=== PATIENT | male | born 1930 | race Caucasian/White ===

== ENCOUNTER 2017-04-03 12:51 | Inpatient (IN) ==
--- NOTE | 2017-04-03 13:42 | Emergency Department Report ---
Medical Clearance HPI - General Chief complaint: Medical Clearance Stated complaint: evaluation Time Seen by Provider: 04/03/17 13:31 Source: patient, other Mode of arrival: ambulatory Limitations: no limitations - History of Present Illness HPI Narrative: Pt denies any complaints at this time. Pt here for clearance to [facility]. He does have a history of dementia with behaviotal changes, Alzheimers, A fib, and neuromuscular dysfunction of the bladder MD complaint: medical clearance requested Onset (ago): unknown Reason for Medical Clearance: other Alleged Intoxication: No Associated Symptoms: denies other symptoms Treatments Prior to Arrival: none Home medications: Home Medications Medication Instructions Recorded Confirmed Aspirin [Yair Chewable Aspirin] 81 mg PO HS 04/03/17 04/03/17 Donepezil [Aricept] 5 mg PO HS 04/03/17 04/03/17 Memantine HCl [Namenda Xr] 28 mg PO HS 04/03/17 04/03/17 Quetiapine [Seroquel] 25 mg PO HS 04/03/17 04/03/17 Allergies/Adverse reactions: Allergies Allergy/AdvReac Type Severity Reaction Status Date / Time Sulfa (Sulfonamide Allergy Verified 04/03/17 13:01 Antibiotics) Review of Systems All systems: reviewed and negative except as stated Genitourinary: Reports: other Neurological: Reports: other Physical Exam - Limitations Limitations: no limitations - General General appearance: alert, in no apparent distress - Normal Exams: Head:: Normocephalic without trauma Eyes:: Pupils are PERRLA w/ EOMI Neck:: Full range of motion Chest/Respirations:: Clear all aquino, with good airflow, and symmetry bilaterally Cardiovascular:: Regular rate and rhythm, without murmur or gallop, Pulses 2+ all extremities Abdomen:: Bowel sounds positive, soft, non-tender, non-distended Musculoskeletal:: No tenderness, or deformity noted, good range of motion, all extremities Integumentary:: No rashes Neurological:: Patient is alert Psychiatric:: Patient exhibits, appropriate attention, emotion and affect Course Vital Signs Temperature 97.7 F 04/03/17 12:55 Pulse Rate 59 L 04/03/17 12:55 Respiratory Rate 20 04/03/17 12:55 Blood Pressure 174/77 H 04/03/17 12:55 Pulse Oximetry 96 04/03/17 12:55 Temperature 97.7 F 04/03/17 12:55 Pulse Rate 59 L 04/03/17 12:55 Respiratory Rate 20 04/03/17 12:55 Blood Pressure 174/77 H 04/03/17 12:55 Pulse Oximetry 96 04/03/17 12:55 Medical Clearance - [facility] Narrative Medical decision making narrative: Labs reviewed, Urine conclusive for UTI. CXR pending Pt ok to transfer to [facility] - Differential Diagnosis Likely: urinary tract infection Differential Diagnosis Narrative: Depression, anxiety, Metabolic syndrome, Dehydration - Lab Data Attestation: I reviewed the patient's lab results. Result diagrams: 04/03/17 14:06 04/03/17 14:06 Lab Results 04/03/17 04/03/17 04/03/17 Range/Units 14:06 14:06 15:04 WBC 8.9 (4.5-11.0) T/MM3 RBC 5.37 (4.50-5.90) M/MM3 Hgb 16.3 (13.5-17.5) GM/DL Hct 50.8 (41-53) % MCV 94.6 (80-100) UM3 MCH 30.4 (26-34) UUG MCHC 32.1 (31-37) GM/DL RDW Std Deviation 46.7 (36.9-50.2) FL Plt Count 235 (130-400) T/MM3 MPV 10.5 (9.4-12.4) UM3 Immature Gran % (Auto) 0.3 (0.0-0.5) % Neut % (Auto) 63.3 (33-66) % Lymph % (Auto) 23.8 (23-45) % Day % (Auto) 8.7 (0-9.0) % Eos % (Auto) 3.3 (0-4) % Baso % (Auto) 0.6 (0-2) % Neut # 5.7 (1.8-7.7) T/MM3 Lymph # 2.1 (1-4.8) T/MM3 Day # 0.8 (0-0.8) T/MM3 Eos # 0.3 (0-0.5) T/MM3 Baso # 0.1 (0-0.2) T/MM3 Abs Immat Gran (auto) 0.03 (0.00-0.03) T/MM3 Turbidity < 20 (0-20) Sodium 146 H (134-144) MEQ/L Potassium 4.1 (3.6-5) MEQ/L Chloride 104 (98-107) MEQ/L Carbon Dioxide 30 (22-30) MEQ/L Anion Gap 12 (5-15) MEQ/L BUN 13.0 (9-20) MG/DL Creatinine 1.1 (0.8-1.5) MG/DL GFR Calculation 64 BUN/Creatinine Ratio 12 (6-26) RATIO Glucose 154 H (75-110) MG/DL Calculated Osmolality 284 H (261-280) MOSM/KG Calcium 9.5 (8.4-10.2) MG/DL Total Bilirubin 1.00 (0.20-1.30) MG/DL Icterus Index < 2 (0-7) AST 23 (17-59) U/L ALT 32 (21-72) U/L Alkaline Phosphatase 107 (38-126) U/L Total Protein 8.1 (6.3-8.2) G/DL Albumin 4.7 (3.5-5.0) G/DL Globulin 3.4 (2.4-3.6) G/DL Albumin/Globulin Ratio 1.4 (1.1-2.2) RATIO Specimen Hemolysis < 15 (0-25) Ur Collection Type Urine, clean catch Urine Color Yellow (YELLOW) Urine Clarity Sl cloudy Urine pH 6.0 (5.0-8.0) Ur Specific [place] 1.015 (1.015-1.025) Urine Protein Negative (NEGATIVE) Urine Glucose (UA) Negative (NEGATIVE) Urine Ketones Negative (NEGATIVE) Urine Occult Blood 1+ A (NEGATIVE) Urine Nitrate Positive A (NEGATIVE) Urine Bilirubin Negative (NEGATIVE) Urine Urobilinogen 0.2 (NORMAL) EU/DL Ur Leukocyte Esterase 3+ (NEGATIVE) Urine RBC 1-3 (0-3) /HPF Urine WBC Tntc (0-5) /HPF Urine Bacteria 2+ H (NEGATIVE) Ur Culture Indicated? Cult reflexed &setup - Radiology Data Attestation: I reviewed the patient's radiology results. per Dr Mendez - EKG Data EKG #1 EKG shows normal: sinus rhythm Rate: bradycardia [place]/QRS: normal Disposition Clinical Impression: UTI (urinary tract infection) Qualifiers: Urinary tract infection type: acute cystitis Hematuria presence: with hematuria Qualified Code(s): N30.01 - Acute cystitis with hematuria [place] 66 [place] [facility] [facility] [place] [facility] Condition: Stable Prescriptions: No Action Quetiapine [Seroquel] 25 mg PO HS Aspirin [Yair Chewable Aspirin] 81 mg PO HS Memantine HCl [Namenda Xr] 28 mg PO HS Donepezil [Aricept] 5 mg PO HS Time of Disposition: 15:43 - Seen By: [email or web address]
--- OUTSIDE RECORDS SUMMARY | 2017-04-03 14:16 | External Medical Summary ---
:1930 Author Organization [employer] Care Team Providers Name Role Phone Laboratory, Services Provider Role Unavailable Allergies No Known Allergies Problems Problem Type Condition ICD-9 Code Onset Dates Condition Status Assessment Obstructive uropathy 599.60 Active Medications No Known Medications Results No Known Results Summary Purpose [employer] Submission
--- NOTE | 2017-04-03 16:11 | XRay Report ---
INDICATION: clearance PROCEDURE: CHEST 2-VIEWS UPRIGHT (PA & LAT) Encounter: Initial COMPARISON: None FINDINGS: The lungs are clear without evidence of focal abnormal airspace opacity. There is no pleural effusion or pneumothorax. The heart size, mediastinal contours and pulmonary vascularity are within normal limits. Old rib and left clavicular deformities. IMPRESSION: No acute cardiopulmonary disease. .
[2017-04-03 17:28] VITALS: BMI 24.3
[2017-04-03] MEDS: ASPIRIN 81 MG CHEWABLE TABLET PO SCH ×2 (19:44→20:15)
[2017-04-03] MEDS: DONEPEZIL 5 MG TABLET PO SCH ×2 (19:44→20:15)
[2017-04-03] MEDS: MEMANTINE 10 MG TABLET PO SCH ×2 (19:44→20:15)
[2017-04-03] MEDS: QUETIAPINE 25 MG TABLET PO SCH ×2 (19:44→20:15)
--- NOTE | 2017-04-03 21:33 | 24 Hour Neuropsychiatic Eval ---
Date of Admission: 04/03/17 16:37 Chief complaint: Agitation per NM History of Present Illness: Patient is as 86-year-old , retired male admitted [place] [facility] [place] [facility] after striking his while she was attempting to help straight cath him as part of his morning routine. His son reports that he recently started taking a new med and has been more agitated since that time, at other times as well. Requires straight cath TID for bladder needs. Patient has a hx of Alzheimer's and has been taking Aricept 5mg daily, Namenda XR 28mg daily and then started Seroquel 25mg PO q HS on 03/30. Patient is calm and cooperative on interview but oriented to self only. He has no insight/memory of symptoms or why he is hospitalized. He cannot remember his 's name or how many children they have. He reports his mood is pretty good most of the time and he feels well physically. He denies SI, HI, or AVH. Dementia: Memory Impairment, Poor Executive Functioning, Other (Agitation, aggression) PFSH Patient Stated Medical History Alzheimer's Disease Yes Other Cardiology Yes: Afib Other Yes: Neuromuscular dysfunction-bladder Other Musculoskeletal Yes: Weakness Depression Yes Family History: Patient is not able to give family hx - Social History Smoking status: Never smoker Substance use type: unknown Housing: assisted living facility Household members: spouse Current occupational status: previously employed Current residence: Assisted Living Review of Systems ROS unobtainable: due to mental status - Psychiatric Psychiatric: Present: behavioral changes, mood swings. Absent: abnormal sleep pattern, auditory hallucinations, homicidal ideation, suicidal ideation, visual hallucinations Mental Status Exam Vitals: Last Vital Signs Temp 97.2 F 04/03/17 20:51 Pulse 52 L 04/03/17 20:51 Resp 16 04/03/17 20:51 BP 135/66 04/03/17 20:51 Pulse Ox 96 04/03/17 20:51 Height: 1.83 m Weight: 81.4 kg - Mental Status Exam Muscle Strength/Tone: Normal Dressing: Casual Grooming: Fair Attitude: Cooperative Motor Activity: Normal Eye Contact: Fair Speech: Other (Short responses) Volume: Normal Rhythm: Appropriate Rhythm Sensory: Alert Orientation: Disoriented to time, Disoriented to place, Disoriented to situation , Oriented to person Mood: Euthymic (Mood labile per family, [place]) Rate of Thoughts: Delayed Thought Organization: Confused Associations: Illogical Abstract Reasoning: Impaired, concrete Computation: Poor Computation Thought Content: Other (No abnormal thought content elicited outside of MNCD) Perception/Psychotic: Perception Normal Language: Naming Impaired Fund of Knowledge: Poor fund of knowledge Memory: Poor-immediate, Poor-recent, Poor-remote Suicidal Ideation: Denies Homicidal Ideation: Denies Insight: Poor Judgement: Poor Impulse Control: Poor - Laboratory Result Diagrams: 04/03/17 14:06 04/03/17 14:06 Assessment and Plan (1) Major neurocognitive disorder Problem details: Severe, with behavioral disturbance - history of Alzheimer's disease Current visit: Yes Status: Acute (2) UTI (urinary tract infection) Qualifiers: Urinary tract infection type: acute cystitis Hematuria presence: with hematuria Qualified Code(s): N30.01 - Acute cystitis with hematuria Current visit: Yes Status: Acute r/o Delirium secondary to UTI Admit to [facility] [place] [facility]. Maintain safety and elopement precautions. Obtain additional history from family. Consult hospitalist for optimization of comorbidities. Continue home medications for the time being. Will request CBC, CMP, TSH with reflex free T4, UA, Vitamin B12 and folate levels. Consider EKG and additional imaging. Monitor mood and behavior.
[2017-04-04] MEDS: MEMANTINE 10 MG TABLET PO SCH ×3 (10:58→20:06)
--- NOTE | 2017-04-04 14:09 | History & Physical Report ---
<Nadege Munoz - Last Filed: 04/04/17 15:51> History of Present Illness Date: 04/04/17 Chief complaint: increased agitation HPI: Patient is an 86-year-old male from [place], [place]. He was admitted to the [facility] due to increasing agitation. It is reported that he struck his while she was attempting to help straight catheter him as part of his morning routine at the residential. Patient is a poor historian. All information was gleaned from his chart and outside records. Apparently his son reports that he recently started taking a new medication and has been more agitated since that time. Patient has a history of Alzheimer's and has been recently started on Seroquel on 03/30/17. Patient was seen was sitting at the table in the dining room. He was calm and cooperative. He is oriented to self only. He feels he is doing well. He is unable to answer any questions related to his history. Patient's nurse reports that today she drained over 1500 cc from his bladder today with straight catheter. It is not clear how long it had been since the patient was catheterized prior, but usually he is catheterized 3 times a day. On admission, he was found to have a positive urine. It is unclear as to if the patient had any urinary symptoms. He has been started on Keflex and culture is pending at this time. Review of Systems ROS unobtainable: due to mental status [facility] Patient Stated Medical History Neurocognitive disorder Depression Family History: Unable to obtain - Social History Smoking status: Never smoker Housing: residential Current residence: Assisted Living Medications Home Medications Medication Instructions Recorded Confirmed Type Aspirin [Yair Chewable Aspirin] 81 mg PO HS 04/03/17 04/04/17 History Donepezil [Aricept] 5 mg PO HS 04/03/17 04/04/17 History Memantine HCl [Namenda Xr] 28 mg PO HS 04/03/17 04/04/17 History Quetiapine [Seroquel] 25 mg PO HS 04/03/17 04/04/17 History Allergies Allergy/AdvReac Type Severity Reaction Status Date / Time Sulfa (Sulfonamide Allergy Verified 04/04/17 00:46 Antibiotics) Exam Vital Signs: Temperature 97.6 F 04/04/17 09:20 Pulse Rate 51 L 04/04/17 09:20 Respiratory Rate 24 09/20/17 09:20 Blood Pressure 167/76 H 04/04/17 09:20 Pulse Oximetry 99 04/04/17 09:20 Height/Weight/BMI: Height 1.83 m Weight 81.4 kg Body Mass Index 24.3 - Constitutional Present: no acute distress, well nourished, well developed - Routine Neck Exam Present: supple - Routine Respiratory Exam Present: CTA bilaterally. Absent: wheezes - Routine Cardiovascular Exam Present: RRR, S1, S2. Absent: murmur - Routine Abdominal Exam Present: soft, non distended. Absent: tenderness - Routine Extremities Exam Present: edema, normal capillary refill - Routine Skin Exam Present: dry, warm - Routine Neurological Exam Present: alert. Absent: oriented X3 (oriented to self only) - Routine Psychiatric Exam Present: normal affect, cooperative Results - Labs CBC & Chem 7: 04/03/17 14:06 04/03/17 14:06 - ECG Data Tracing #1 Sinus bradycardia - Imaging and Cardiology Chest x-ray Additional comments: IMPRESSION: No acute cardiopulmonary disease. Assessment and Plan Assessment and Plan: Impression Neurocognitive deficits with behavioral changes Hypernatremia-POA Hypothyroidism-TSH on admission 5.85 UTI versus asymptomatic bacteriuria-given his change in mental status, antibiotic treatment has been initiated Plan Agree with admission to [facility] for psychiatric evaluation and treatment, and to provide safe environment for the patient. Encourage fluids given his hypernatremia. Recheck BMP in the a.m. Start low-dose Synthroid for his elevated TSH. Free T4 is still pending. He will need TSH in 4 weeks. Continue cephalexin for presumed UTI. Culture is pending. Thank you for the consult. We will continue to follow patient medically throughout his hospital stay. Sepsis Assessment - Evaluation Sepsis screening result: No Definite Risk Hospital Course Summary Disclaimer: The visit summary below is not to be considered part of the above Progress Note. Hospital Course: Impression Neurocognitive deficits with behavioral changes Hypernatremia-POA Hypothyroidism-TSH on admission 5.85. UTI versus asymptomatic bacteriuria-given his change in mental status, antibiotic treatment has been initiated 04/04/17-hospitalist consult Agree with admission to [facility] for psychiatric evaluation and treatment, and to provide safe environment for the patient. Encourage fluids given his hypernatremia. Recheck BMP in the a.m. Start low-dose Synthroid for his elevated TSH. Free T4 is still pending.Repeat TSH in 4 weeks. Continue cephalexin for presumed UTI. Culture is pending. Thank you for the consult. We will continue to follow patient medically throughout his hospital stay. <Silver Traore - Last Filed: 04/04/17 19:05> History of Present Illness Date: 04/04/17 [facility] Patient Stated Medical History Alzheimer's Disease Yes Other Cardiology Yes: Afib Other Yes: Neuromuscular dysfunction-bladder Other Musculoskeletal Yes: Weakness Depression Yes Exam Vital Signs: Temperature 97.2 F 04/04/17 16:32 Pulse Rate 54 L 04/04/17 16:32 Respiratory Rate 20 04/04/17 16:32 Blood Pressure 149/83 H 04/04/17 16:32 Pulse Oximetry 99 04/04/17 16:32 Height/Weight/BMI: Height 6 ft Weight 81.4 kg Body Mass Index 24.3 Results - Labs CBC & Chem 7: 04/03/17 14:06 04/03/17 14:06 Assessment and Plan Assessment and Plan: Above pt was seen and examined, agree with above plan of care and findings. On exam pt is very disoriented - but is not agitated. Labs show his TSH is high , he is on low dose T4 replacement, apparently his hypothyroidism is a new Dx. Other labs reviewed. Diagnosis and plan 1) Hypernatremia - mild 2) Hypothyroidism - TSH elevated, would check an AM cortisol and go slow with his replacement to avoid heart problems. 3) UTI - Await cultures. Continue Keflex. - Time spent with patient 25 - 35 minutes Hospital Course Summary Disclaimer: The visit summary below is not to be considered part of the above Progress Note.
[2017-04-04] MEDS ORDERED: HALOPERIDOL 5 MG/ML INJECTION IM PRN (15:48)
[2017-04-04] MEDS ORDERED: HALOPERIDOL 0.5 MG TABLET PO PRN (15:48)
[2017-04-04] MEDS: QUETIAPINE 25 MG TABLET PO SCH ×2 (19:49→20:06)
[2017-04-04] MEDS: ASPIRIN 81 MG CHEWABLE TABLET PO SCH ×2 (19:49→20:04)
[2017-04-04] MEDS: DONEPEZIL 5 MG TABLET PO SCH ×2 (19:49→20:03)
--- NOTE | 2017-04-04 21:25 | Neuropsych Progress Note ---
[facility] Subjective Date: 04/04/17 - Sujective/Severity of Illness Medications: Aspirin (Asa) 81 mg PO [facility] Last Admin: 04/04/17 20:04 Dose: Not Given Cephalexin HCl (Keflex) 500 mg PO QID [facility] Stop: 04/13/17 23:59 Last Admin: 04/04/17 20:05 Dose: Not Given Donepezil HCl (Aricept) 5 mg PO [facility] Last Admin: 04/04/17 20:03 Dose: Not Given Haloperidol (Haldol) 0.5 mg PO Q6H PRN PRN Reason: Extreme agitation Haloperidol Lactate (Haldol) 0.5 mg IM Q6H PRN PRN Reason: Extreme agitation Levothyroxine Sodium (Synthroid) 25 mcg PO B [facility] Lorazepam (Ativan) 0.5 mg PO Q6H PRN PRN Reason: Extreme agitation Lorazepam (Ativan Inj) 0.5 mg IM Q6H PRN PRN Reason: Extreme agitation Memantine (Namenda) 10 mg PO BID [facility] Last Admin: 04/04/17 20:06 Dose: Not Given Quetiapine Fumarate (Seroquel) 25 mg PO [facility] Last Admin: 04/04/17 20:06 Dose: Not Given Subjective: Pt seen and chart examined. Nursing reports pt slept well and has a good appetite. Pt became anxious this afternoon and was attempting to leave. Pt was given Ativan at 1603 which was helpful. On face to face the pt is pleasant but confused. He is only oriented to self. He denies any pain. He reports tolerating his meds. Start Time: 17:45 Stop Time: 18:00 Mental Status Exam Vitals: Last Vital Signs Temp 97.2 F 04/04/17 16:32 Pulse 54 L 04/04/17 16:32 Resp 20 04/04/17 16:32 BP 149/83 H 04/04/17 16:32 Pulse Ox 99 04/04/17 16:32 Height: 1.83 m Weight: 81.4 kg - Mental Status Exam Muscle Strength/Tone: Normal Dressing: Casual Grooming: Fair Attitude: Cooperative Motor Activity: Normal Eye Contact: Fair Speech: Other (Short responses) Volume: Normal Rhythm: Appropriate Rhythm Orientation: Disoriented to time, Disoriented to place, Disoriented to situation , Oriented to person Mood: Euthymic (Mood labile per family, [place]) Rate of Thoughts: Delayed Thought Organization: Confused Associations: Illogical Abstract Reasoning: Impaired, concrete Computation: Poor Computation Thought Content: Other (No abnormal thought content elicited outside of MNCD) Perception/Psychotic: Perception Normal Language: Naming Impaired Fund of Knowledge: Poor fund of knowledge Memory: Poor-immediate, Poor-recent, Poor-remote Suicidal Ideation: Denies Homicidal Ideation: Denies Insight: Poor Judgement: Poor Impulse Control: Poor - Laboratory Result Diagrams: 04/03/17 14:06 04/03/17 14:06 Laboratory Results - last 24 hr 04/04/17 05:05 Hemoglobin A1c 5.1 L TSH 5.85 H Assessment and Plan (1) UTI (urinary tract infection) Qualifiers: Urinary tract infection type: acute cystitis Hematuria presence: with hematuria Qualified Code(s): N30.01 - Acute cystitis with hematuria Current visit: Yes Status: Acute (2) Major neurocognitive disorder Problem details: Severe, with behavioral disturbance - history of Alzheimer's disease Current visit: Yes Status: Acute Hospital Course Summary Disclaimer: The visit summary below is not to be considered part of the above Progress Note. Hospital Course: Impression Neurocognitive deficits with behavioral changes Hypernatremia-POA Hypothyroidism-TSH on admission 5.85. UTI versus asymptomatic bacteriuria-given his change in mental status, antibiotic treatment has been initiated 04/04/17-hospitalist consult Agree with admission to [facility] for psychiatric evaluation and treatment, and to provide safe environment for the patient. Encourage fluids given his hypernatremia. Recheck BMP in the a.m. Start low-dose Synthroid for his elevated TSH. Free T4 is still pending.Repeat TSH in 4 weeks. Continue cephalexin for presumed UTI. Culture is pending. Thank you for the consult. We will continue to follow patient medically throughout his hospital stay. 04/04/17 21:23 Pt continues to ahve some confusion and agitation at times. Will D/C Seroquel as son feels this may have made symptoms worse. Will see if symptoms improve as UTI clears
[2017-04-05] MEDS: LEVOTHYROXINE 25 MCG TABLET PO SCH (10:11)
[2017-04-05] MEDS: LORazepam 0.5 MG TABLET PO PRN (10:13)
[2017-04-05] MEDS: MEMANTINE 10 MG TABLET PO SCH ×2 (10:13→20:15)
[2017-04-05] MEDS: ASPIRIN 81 MG CHEWABLE TABLET PO SCH (20:14)
[2017-04-05] MEDS: DONEPEZIL 5 MG TABLET PO SCH (20:14)
--- NOTE | 2017-04-05 20:44 | Neuropsych Progress Note ---
Sandra Subjective Date: 04/05/17 - Sujective/Severity of Illness Medications: Aspirin (Asa) 81 mg PO HS [facility] Last Admin: 04/05/17 20:14 Dose: 81 mg Cephalexin HCl (Keflex) 500 mg PO QID [facility] Stop: 04/13/17 23:59 Last Admin: 04/05/17 20:14 Dose: 500 mg Donepezil HCl (Aricept) 5 mg PO HS [facility] Last Admin: 04/05/17 20:14 Dose: 5 mg Haloperidol (Haldol) 0.5 mg PO Q6H PRN PRN Reason: Extreme agitation Haloperidol Lactate (Haldol) 0.5 mg IM Q6H PRN PRN Reason: Extreme agitation Levothyroxine Sodium (Synthroid) 25 mcg PO ACB [facility] Last Admin: 04/05/17 10:11 Dose: 25 mcg Lorazepam (Ativan) 0.5 mg PO Q6H PRN PRN Reason: Extreme agitation Last Admin: 04/05/17 10:13 Dose: 0.5 mg Lorazepam (Ativan Inj) 0.5 mg IM Q6H PRN PRN Reason: Extreme agitation Memantine (Namenda) 10 mg PO BID [facility] Last Admin: 04/05/17 20:15 Dose: 10 mg Subjective: Pt seen and chart examined. Nursing reports pt slept well and has a good appetite. Nursing reports pt can appear tense and pace at times but he is redirectable and no behaviors noted. On face to face the pt is pleasant but confused. He is only oriented to self. He reports he is doing well and voices no concerns. Denies pain. Tolerating meds Start Time: 17:30 Stop Time: 17:45 Mental Status Exam Vitals: Last Vital Signs Temp 98.4 F 04/05/17 16:00 Pulse 74 04/05/17 16:00 Resp 16 04/05/17 16:00 BP 140/79 H 04/05/17 16:00 Pulse Ox 98 04/05/17 16:00 Height: 1.83 m Weight: 81.4 kg - Mental Status Exam Muscle Strength/Tone: Normal Dressing: Casual Grooming: Fair Attitude: Cooperative Motor Activity: Normal Eye Contact: Fair Speech: Other (Short responses) Volume: Normal Rhythm: Appropriate Rhythm Orientation: Disoriented to time, Disoriented to place, Disoriented to situation , Oriented to person Mood: Euthymic (Mood labile per family, [place]) Rate of Thoughts: Delayed Thought Organization: Confused Associations: Illogical Abstract Reasoning: Impaired, concrete Computation: Poor Computation Thought Content: Other (No abnormal thought content elicited outside of MNCD) Perception/Psychotic: Perception Normal Language: Naming Impaired Fund of Knowledge: Poor fund of knowledge Memory: Poor-immediate, Poor-recent, Poor-remote Suicidal Ideation: Denies Homicidal Ideation: Denies Insight: Poor Judgement: Poor Impulse Control: Poor - Laboratory Result Diagrams: 04/03/17 14:06 04/05/17 08:32 Laboratory Results - last 24 hr 04/04/17 04/05/17 04/05/17 05:05 08:32 08:32 Turbidity < 20 Sodium 145 H Potassium 4.1 Chloride 106 Carbon Dioxide 28 Anion Gap 11 BUN 17.0 Creatinine 1.0 GFR Calculation 71 BUN/Creatinine Ratio 17 Glucose 85 Calculated Osmolality 280 Calcium 9.3 Icterus Index < 2 Triglycerides 57 Cholesterol 156 LDL Cholesterol, Calc 103.6 VLDL Cholesterol 11.4 HDL Cholesterol 41 Cholesterol/HDL Ratio 3.8 Cortisol AM Sample 12 Specimen Hemolysis < 15 Assessment and Plan (1) UTI (urinary tract infection) Qualifiers: Urinary tract infection type: acute cystitis Hematuria presence: with hematuria Qualified Code(s): N30.01 - Acute cystitis with hematuria Current visit: Yes Status: Acute (2) Major neurocognitive disorder Problem details: Severe, with behavioral disturbance - history of Alzheimer's disease Current visit: Yes Status: Acute Hospital Course Summary Disclaimer: The visit summary below is not to be considered part of the above Progress Note. Hospital Course: Impression Neurocognitive deficits with behavioral changes Hypernatremia-POA Hypothyroidism-TSH on admission 5.85. UTI versus asymptomatic bacteriuria-given his change in mental status, antibiotic treatment has been initiated 04/04/17-hospitalist consult Agree with admission to [facility] for psychiatric evaluation and treatment, and to provide safe environment for the patient. Encourage fluids given his hypernatremia. Recheck BMP in the a.m. Start low-dose Synthroid for his elevated TSH. Free T4 is still pending.Repeat TSH in 4 weeks. Continue cephalexin for presumed UTI. Culture is pending. Thank you for the consult. We will continue to follow patient medically throughout his hospital stay. 04/04/17 21:23 Pt continues to ahve some confusion and agitation at times. Will D/C Seroquel as son feels this may have made symptoms worse. Will see if symptoms improve as UTI clears 04/05/17 20:44 Pt can be anxious and pacing at times but is redirectable. Continue current care
[2017-04-06] MEDS: LEVOTHYROXINE 25 MCG TABLET PO SCH (10:29)
[2017-04-06] MEDS: MEMANTINE 10 MG TABLET PO SCH ×2 (10:29→20:52)
--- NOTE | 2017-04-06 15:56 | Progress Note ---
Progress Note: Chart Review Review of the chart indicates that Enrico continues to have slightly elevated blood pressures in the 140-150's systolic. Review of his prior medical records and current medications reveals no current antihypertensive treatment. Will initiate Norvasc 2.5mg daily and monitor blood pressures closely. Monitor closely for signs of hypotension and orthostasis. TSH on admission was elevated at 5.85. T4 was 0.92. Low dose Synthroid was initiated. Recommend repeat TSH as outpatient in approximately 4 weeks. UTI found on admission and revealed pansensitive coag negative staph. Will continue Keflex for urinary pathogen coverage. Hypernatremia improving with recent sodium at 145. Will recheck labs on 04/09 to monitor blood counts, electrolytes and renal function. Continue to encourage fluids.
--- NOTE | 2017-04-06 18:30 | Neuropsych Progress Note ---
Sandra Subjective Date: 04/06/17 - Sujective/Severity of Illness Medications: Amlodipine Besylate (Norvasc) 2.5 mg PO DAILY [facility] Aspirin (Asa) 81 mg PO [facility] Last Admin: 04/05/17 20:14 Dose: 81 mg Cephalexin HCl (Keflex) 500 mg PO QID [facility] Stop: 04/13/17 23:59 Last Admin: 04/06/17 17:38 Dose: 500 mg Donepezil HCl (Aricept) 5 mg PO HS [facility] Last Admin: 04/05/17 20:14 Dose: 5 mg Haloperidol (Haldol) 0.5 mg PO Q6H PRN PRN Reason: Extreme agitation Haloperidol Lactate (Haldol) 0.5 mg IM Q6H PRN PRN Reason: Extreme agitation Levothyroxine Sodium (Synthroid) 25 mcg PO ACB [facility] Last Admin: 04/06/17 10:29 Dose: 25 mcg Lorazepam (Ativan) 0.5 mg PO Q6H PRN PRN Reason: Extreme agitation Last Admin: 04/05/17 10:13 Dose: 0.5 mg Lorazepam (Ativan Inj) 0.5 mg IM Q6H PRN PRN Reason: Extreme agitation Memantine (Namenda) 10 mg PO BID [facility] Last Admin: 04/06/17 10:29 Dose: 10 mg Subjective: Pt seen and chart examined. Nursing reports pt slept well and has a good appetite. Nursing reports pt has been a little better today. Less tense and no exit seeking behavior. On face to face the pt is pleasant but confused. He is only oriented to self. He reports his mood is stable and denies pain. Voices no concerns at this time Start Time: 16:45 Stop Time: 17:00 Mental Status Exam Vitals: Last Vital Signs Temp 97.4 F 04/06/17 16:00 Pulse 54 L 04/06/17 16:00 Resp 16 04/06/17 16:00 BP 143/73 H 04/06/17 16:00 Pulse Ox 95 04/06/17 16:00 Height: 1.83 m Weight: 81.4 kg - Mental Status Exam Muscle Strength/Tone: Normal Dressing: Casual Grooming: Fair Attitude: Cooperative Motor Activity: Normal Eye Contact: Fair Speech: Other (Short responses) Volume: Normal Rhythm: Appropriate Rhythm Orientation: Disoriented to time, Disoriented to place, Disoriented to situation , Oriented to person Mood: Euthymic (Mood labile per family, [place]) Rate of Thoughts: Delayed Thought Organization: Confused Associations: Illogical Abstract Reasoning: Impaired, concrete Computation: Poor Computation Thought Content: Other (No abnormal thought content elicited outside of MNCD) Perception/Psychotic: Perception Normal Language: Naming Impaired Fund of Knowledge: Poor fund of knowledge Memory: Poor-immediate, Poor-recent, Poor-remote Suicidal Ideation: Denies Homicidal Ideation: Denies Insight: Poor Judgement: Poor Impulse Control: Poor - Laboratory Result Diagrams: 04/03/17 14:06 04/05/17 08:32 Laboratory Results - last 24 hr 04/04/17 04/04/17 05:05 05:05 Vitamin B12 301 Folate 5.3 Free T4 0.92 Assessment and Plan (1) UTI (urinary tract infection) Qualifiers: Urinary tract infection type: acute cystitis Hematuria presence: with hematuria Qualified Code(s): N30.01 - Acute cystitis with hematuria Current visit: Yes Status: Acute (2) Major neurocognitive disorder Problem details: Severe, with behavioral disturbance - history of Alzheimer's disease Current visit: Yes Status: Acute Hospital Course Summary Disclaimer: The visit summary below is not to be considered part of the above Progress Note. Hospital Course: Impression Neurocognitive deficits with behavioral changes Hypernatremia-POA Hypothyroidism-TSH on admission 5.85. UTI versus asymptomatic bacteriuria-given his change in mental status, antibiotic treatment has been initiated 04/04/17-hospitalist consult Agree with admission to [facility] for psychiatric evaluation and treatment, and to provide safe environment for the patient. Encourage fluids given his hypernatremia. Recheck BMP in the a.m. Start low-dose Synthroid for his elevated TSH. Free T4 is still pending.Repeat TSH in 4 weeks. Continue cephalexin for presumed UTI. Culture is pending. Thank you for the consult. We will continue to follow patient medically throughout his hospital stay. 04/04/17 21:23 Pt continues to ahve some confusion and agitation at times. Will D/C Seroquel as son feels this may have made symptoms worse. Will see if symptoms improve as UTI clears 04/05/17 20:44 Pt can be anxious and pacing at times but is redirectable. Continue current care 04/06/17 18:30 Pt a little better today. Remains confused but no behaviors noted. Continue current care
[2017-04-06] MEDS: ASPIRIN 81 MG CHEWABLE TABLET PO SCH (20:52)
[2017-04-06] MEDS: DONEPEZIL 5 MG TABLET PO SCH (20:52)
[2017-04-07] MEDS: LEVOTHYROXINE 25 MCG TABLET PO SCH (12:34)
[2017-04-07] MEDS: MEMANTINE 10 MG TABLET PO SCH ×2 (12:34→20:31)
[2017-04-07] MEDS: AMLODIPINE 2.5 MG TABLET PO SCH (12:34)
[2017-04-07] MEDS: DONEPEZIL 5 MG TABLET PO SCH (20:31)
[2017-04-07] MEDS: ASPIRIN 81 MG CHEWABLE TABLET PO SCH (20:31)
--- NOTE | 2017-04-07 20:59 | Neuropsych Progress Note ---
[facility] Subjective Date: 04/07/17 - Sujective/Severity of Illness Medications: Amlodipine Besylate (Norvasc) 2.5 mg PO DAILY [facility] Last Admin: 04/07/17 12:34 Dose: 2.5 mg Aspirin (Asa) 81 mg PO HS [facility] Last Admin: 04/07/17 20:31 Dose: 81 mg Cephalexin HCl (Keflex) 500 mg PO QID [facility] Stop: 04/13/17 23:59 Last Admin: 04/07/17 20:31 Dose: 500 mg Donepezil HCl (Aricept) 5 mg PO HS [facility] Last Admin: 04/07/17 20:31 Dose: 5 mg Haloperidol (Haldol) 0.5 mg PO Q6H PRN PRN Reason: Extreme agitation Haloperidol Lactate (Haldol) 0.5 mg IM Q6H PRN PRN Reason: Extreme agitation Levothyroxine Sodium (Synthroid) 25 mcg PO ACB [facility] Last Admin: 04/07/17 12:34 Dose: 25 mcg Lorazepam (Ativan) 0.5 mg PO Q6H PRN PRN Reason: Extreme agitation Last Admin: 04/05/17 10:13 Dose: 0.5 mg Lorazepam (Ativan Inj) 0.5 mg IM Q6H PRN PRN Reason: Extreme agitation Memantine (Namenda) 10 mg PO BID [facility] Last Admin: 04/07/17 20:31 Dose: 10 mg Subjective: Pt seen and chart examined. Nursing reports pt slept well and has a good appetite. Nursing reports pt has done well today. No behaviors noted. On face to face the pt is pleasant but confused. He reports his mood is stable. He is only oriented to self. Denies pain. Tolerating meds Start Time: 10:30 Stop Time: 10:45 Mental Status Exam Vitals: Last Vital Signs Temp 98 F 04/07/17 13:00 Pulse 84 04/07/17 13:00 Resp 15 04/07/17 13:00 BP 138/75 04/07/17 13:00 Pulse Ox 97 04/07/17 13:00 Height: 1.83 m Weight: 81.4 kg - Mental Status Exam Muscle Strength/Tone: Normal Dressing: Casual Grooming: Fair Attitude: Cooperative Motor Activity: Normal Eye Contact: Fair Speech: Other (Short responses) Volume: Normal Rhythm: Appropriate Rhythm Orientation: Disoriented to time, Disoriented to place, Disoriented to situation , Oriented to person Mood: Euthymic (Mood labile per family, [place]) Rate of Thoughts: Delayed Thought Organization: Confused Associations: Illogical Abstract Reasoning: Impaired, concrete Computation: Poor Computation Thought Content: Other (No abnormal thought content elicited outside of MNCD) Perception/Psychotic: Perception Normal Language: Naming Impaired Fund of Knowledge: Poor fund of knowledge Memory: Poor-immediate, Poor-recent, Poor-remote Suicidal Ideation: Denies Homicidal Ideation: Denies Insight: Poor Judgement: Poor Impulse Control: Poor - Laboratory Result Diagrams: 04/03/17 14:06 04/05/17 08:32 Assessment and Plan (1) UTI (urinary tract infection) Qualifiers: Urinary tract infection type: acute cystitis Hematuria presence: with hematuria Qualified Code(s): N30.01 - Acute cystitis with hematuria Current visit: Yes Status: Acute (2) Major neurocognitive disorder Problem details: Severe, with behavioral disturbance - history of Alzheimer's disease Current visit: Yes Status: Acute Hospital Course Summary Disclaimer: The visit summary below is not to be considered part of the above Progress Note. Hospital Course: Impression Neurocognitive deficits with behavioral changes Hypernatremia-POA Hypothyroidism-TSH on admission 5.85. UTI versus asymptomatic bacteriuria-given his change in mental status, antibiotic treatment has been initiated 04/04/17-hospitalist consult Agree with admission to [facility] for psychiatric evaluation and treatment, and to provide safe environment for the patient. Encourage fluids given his hypernatremia. Recheck BMP in the a.m. Start low-dose Synthroid for his elevated TSH. Free T4 is still pending.Repeat TSH in 4 weeks. Continue cephalexin for presumed UTI. Culture is pending. Thank you for the consult. We will continue to follow patient medically throughout his hospital stay. 04/04/17 21:23 Pt continues to ahve some confusion and agitation at times. Will D/C Seroquel as son feels this may have made symptoms worse. Will see if symptoms improve as UTI clears 04/05/17 20:44 Pt can be anxious and pacing at times but is redirectable. Continue current care 04/06/17 18:30 Pt a little better today. Remains confused but no behaviors noted. Continue current care 04/07/17 20:58 No behaviors today. Continue current care
[2017-04-08] MEDS: LEVOTHYROXINE 25 MCG TABLET PO SCH (09:07)
[2017-04-08] MEDS: MEMANTINE 10 MG TABLET PO SCH ×2 (09:07→20:52)
[2017-04-08] MEDS: AMLODIPINE 2.5 MG TABLET PO SCH (09:08)
[2017-04-08] MEDS: LORazepam 0.5 MG TABLET PO PRN (12:00)
--- NOTE | 2017-04-08 12:21 | Neuropsych Progress Note ---
[facility] Subjective Date: 04/08/17 - Sujective/Severity of Illness Medications: Amlodipine Besylate (Norvasc) 2.5 mg PO DAILY [facility] Last Admin: 04/08/17 09:08 Dose: 2.5 mg Aspirin (Asa) 81 mg PO HS [facility] Last Admin: 04/07/17 20:31 Dose: 81 mg Cephalexin HCl (Keflex) 500 mg PO QID [facility] Stop: 04/13/17 23:59 Last Admin: 04/08/17 12:00 Dose: 500 mg Donepezil HCl (Aricept) 5 mg PO HS [facility] Last Admin: 04/07/17 20:31 Dose: 5 mg Haloperidol (Haldol) 0.5 mg PO Q6H PRN PRN Reason: Extreme agitation Haloperidol Lactate (Haldol) 0.5 mg IM Q6H PRN PRN Reason: Extreme agitation Levothyroxine Sodium (Synthroid) 25 mcg PO ACB [facility] Last Admin: 04/08/17 09:07 Dose: 25 mcg Lorazepam (Ativan) 0.5 mg PO Q6H PRN PRN Reason: Extreme agitation Last Admin: 04/08/17 12:00 Dose: 0.5 mg Lorazepam (Ativan Inj) 0.5 mg IM Q6H PRN PRN Reason: Extreme agitation Last Admin: 04/07/17 19:52 Dose: 0.5 mg Memantine (Namenda) 10 mg PO BID [facility] Last Admin: 04/08/17 09:07 Dose: 10 mg Subjective: Pt seen and chart examined.Nursing reports pt was agitated last night, was packing his things, exit seeking and was aggressive with staff when they tried to redirect him. Pt was given Ativan IM at 1950. Pt has been more pleasant and cooperative today. Smiling with staff. On face to face the pt is pleasant but confused. He reports he is doing well. He has no recollection of last nights events. He reports his mood is stable. Tolerating meds Start Time: 11:30 Stop Time: 11:45 Mental Status Exam Vitals: Last Vital Signs Temp 97.9 F 04/08/17 08:00 Pulse 70 04/08/17 08:00 Resp 16 04/08/17 08:00 BP 154/84 H 04/08/17 08:00 Pulse Ox 96 04/08/17 08:00 Height: 1.83 m Weight: 81.4 kg - Mental Status Exam Muscle Strength/Tone: Normal Dressing: Casual Grooming: Fair Attitude: Cooperative Motor Activity: Normal Eye Contact: Fair Speech: Other (Short responses) Volume: Normal Rhythm: Appropriate Rhythm Orientation: Disoriented to time, Disoriented to place, Disoriented to situation , Oriented to person Mood: Euthymic (Mood labile per family, [place]) Rate of Thoughts: Delayed Thought Organization: Confused Associations: Illogical Abstract Reasoning: Impaired, concrete Computation: Poor Computation Thought Content: Other (No abnormal thought content elicited outside of MNCD) Perception/Psychotic: Perception Normal Language: Naming Impaired Fund of Knowledge: Poor fund of knowledge Memory: Poor-immediate, Poor-recent, Poor-remote Suicidal Ideation: Denies Homicidal Ideation: Denies Insight: Poor Judgement: Poor Impulse Control: Poor - Laboratory Result Diagrams: 04/03/17 14:06 04/05/17 08:32 Assessment and Plan (1) UTI (urinary tract infection) Qualifiers: Urinary tract infection type: acute cystitis Hematuria presence: with hematuria Qualified Code(s): N30.01 - Acute cystitis with hematuria Current visit: Yes Status: Acute (2) Major neurocognitive disorder Problem details: Severe, with behavioral disturbance - history of Alzheimer's disease Current visit: Yes Status: Acute Hospital Course Summary Disclaimer: The visit summary below is not to be considered part of the above Progress Note. Hospital Course: Impression Neurocognitive deficits with behavioral changes Hypernatremia-POA Hypothyroidism-TSH on admission 5.85. UTI versus asymptomatic bacteriuria-given his change in mental status, antibiotic treatment has been initiated 04/04/17-hospitalist consult Agree with admission to [facility] for psychiatric evaluation and treatment, and to provide safe environment for the patient. Encourage fluids given his hypernatremia. Recheck BMP in the a.m. Start low-dose Synthroid for his elevated TSH. Free T4 is still pending.Repeat TSH in 4 weeks. Continue cephalexin for presumed UTI. Culture is pending. Thank you for the consult. We will continue to follow patient medically throughout his hospital stay. 04/04/17 21:23 Pt continues to ahve some confusion and agitation at times. Will D/C Seroquel as son feels this may have made symptoms worse. Will see if symptoms improve as UTI clears 04/05/17 20:44 Pt can be anxious and pacing at times but is redirectable. Continue current care 04/06/17 18:30 Pt a little better today. Remains confused but no behaviors noted. Continue current care 04/07/17 20:58 No behaviors today. Continue current care 04/08/17 12:21 Some aggression and exit seeking last night. Will contact family and discuss starting medication to assist with agitation
[2017-04-08] MEDS: DONEPEZIL 5 MG TABLET PO SCH (20:52)
[2017-04-08] MEDS: ASPIRIN 81 MG CHEWABLE TABLET PO SCH (20:52)
[2017-04-09] MEDS: LEVOTHYROXINE 25 MCG TABLET PO SCH (06:06)
[2017-04-09] MEDS: AMLODIPINE 2.5 MG TABLET PO SCH (09:59)
[2017-04-09] MEDS: MEMANTINE 10 MG TABLET PO SCH ×2 (09:59→20:21)
--- NOTE | 2017-04-09 16:11 | Progress Note ---
Progress Note: Patient's chart was reviewed. Reviewed vital signs, psychiatric note, nurse's notes, labs and orders. He continues on cephalexin for UTI. Urine culture reviewed, positive for coag negative staph - pansensitive. TSH was slightly elevated on admission, continues on levothyroxine with plan to repeat TSH in 4- 6 weeks. Mild hypernatremia, this has been stable. No changes at this time. Patient is medically stable.
[2017-04-09] MEDS: DONEPEZIL 5 MG TABLET PO SCH (20:20)
[2017-04-09] MEDS: ASPIRIN 81 MG CHEWABLE TABLET PO SCH (20:29)
--- NOTE | 2017-04-09 21:00 | Neuropsych Progress Note ---
[facility] Subjective Date: 04/09/17 - Sujective/Severity of Illness Medications: Amlodipine Besylate (Norvasc) 2.5 mg PO DAILY [facility] Last Admin: 04/09/17 09:59 Dose: 2.5 mg Aspirin (Asa) 81 mg PO HS [facility] Last Admin: 04/09/17 20:29 Dose: 81 mg Cephalexin HCl (Keflex) 500 mg PO QID [facility] Stop: 04/13/17 23:59 Last Admin: 04/09/17 20:21 Dose: 500 mg Donepezil HCl (Aricept) 5 mg PO HS [facility] Last Admin: 04/09/17 20:20 Dose: 5 mg Haloperidol (Haldol) 0.5 mg PO Q6H PRN PRN Reason: Extreme agitation Haloperidol Lactate (Haldol) 0.5 mg IM Q6H PRN PRN Reason: Extreme agitation Levothyroxine Sodium (Synthroid) 25 mcg PO ACB [facility] Last Admin: 04/09/17 06:06 Dose: 25 mcg Lorazepam (Ativan) 0.5 mg PO Q6H PRN PRN Reason: Extreme agitation Last Admin: 04/08/17 12:00 Dose: 0.5 mg Lorazepam (Ativan Inj) 0.5 mg IM Q6H PRN PRN Reason: Extreme agitation Last Admin: 04/07/17 19:52 Dose: 0.5 mg Magnesium Hydroxide (Mom) 30 ml PO DAILY PRN PRN Reason: Constipation Last Admin: 04/09/17 10:00 Dose: 30 ml Memantine (Namenda) 10 mg PO BID [facility] Last Admin: 04/09/17 20:21 Dose: 10 mg Subjective: Pt seen and chart examined.Nursing reports pt did a little better today. Some pacing and is flat at times but is redirectable. On face to face the pt is pleasant but confused. He is only oriented to self. He denies any pain. Tolerating meds Start Time: 17:30 Stop Time: 17:45 Mental Status Exam Vitals: Last Vital Signs Temp 97.6 F 04/09/17 16:00 Pulse 64 04/09/17 16:00 Resp 20 04/09/17 16:00 BP 155/72 H 04/09/17 16:00 Pulse Ox 92 04/09/17 16:00 Height: 1.83 m Weight: 81.4 kg - Mental Status Exam Muscle Strength/Tone: Normal Dressing: Casual Grooming: Fair Attitude: Cooperative Motor Activity: Normal Eye Contact: Fair Speech: Other (Short responses) Volume: Normal Rhythm: Appropriate Rhythm Orientation: Disoriented to time, Disoriented to place, Disoriented to situation , Oriented to person Mood: Euthymic (Mood labile per family, [place]) Rate of Thoughts: Delayed Thought Organization: Confused Associations: Illogical Abstract Reasoning: Impaired, concrete Computation: Poor Computation Thought Content: Other (No abnormal thought content elicited outside of MNCD) Perception/Psychotic: Perception Normal Language: Naming Impaired Fund of Knowledge: Poor fund of knowledge Memory: Poor-immediate, Poor-recent, Poor-remote Suicidal Ideation: Denies Homicidal Ideation: Denies Insight: Poor Judgement: Poor Impulse Control: Poor - Laboratory Result Diagrams: 04/09/17 06:11 04/09/17 06:11 Laboratory Results - last 24 hr 04/09/17 04/09/17 06:11 06:11 WBC 6.1 RBC 4.87 Hgb 14.9 Hct 45.0 MCV 92.4 MCH 30.6 MCHC 33.1 RDW Std Deviation 43.3 Plt Count 190 MPV 10.5 Immature Gran % (Auto) 0.2 Neut % (Auto) 53.8 Lymph % (Auto) 29.5 Whiteside % (Auto) 11.6 H Eos % (Auto) 4.1 H Baso % (Auto) 0.8 Neut # 3.3 Lymph # 1.8 Whiteside # 0.7 Eos # 0.3 Baso # 0.1 Abs Immat Gran (auto) 0.01 Turbidity < 20 Sodium 146 H Potassium 3.6 Chloride 108 H Carbon Dioxide 29 Anion Gap 9 BUN 19.0 Creatinine 1.0 GFR Calculation 71 BUN/Creatinine Ratio 19 Glucose 84 Calculated Osmolality 282 H Calcium 9.1 Icterus Index < 2 Specimen Hemolysis < 15 Assessment and Plan (1) UTI (urinary tract infection) Qualifiers: Urinary tract infection type: acute cystitis Hematuria presence: with hematuria Qualified Code(s): N30.01 - Acute cystitis with hematuria Current visit: Yes Status: Acute (2) Major neurocognitive disorder Problem details: Severe, with behavioral disturbance - history of Alzheimer's disease Current visit: Yes Status: Acute Hospital Course Summary Disclaimer: The visit summary below is not to be considered part of the above Progress Note. Hospital Course: Impression Neurocognitive deficits with behavioral changes Hypernatremia-POA Hypothyroidism-TSH on admission 5.85. UTI versus asymptomatic bacteriuria-given his change in mental status, antibiotic treatment has been initiated 04/04/17-hospitalist consult Agree with admission to [facility] for psychiatric evaluation and treatment, and to provide safe environment for the patient. Encourage fluids given his hypernatremia. Recheck BMP in the a.m. Start low-dose Synthroid for his elevated TSH. Free T4 is still pending.Repeat TSH in 4 weeks. Continue cephalexin for presumed UTI. Culture is pending. Thank you for the consult. We will continue to follow patient medically throughout his hospital stay. 04/04/17 21:23 Pt continues to ahve some confusion and agitation at times. Will D/C Seroquel as son feels this may have made symptoms worse. Will see if symptoms improve as UTI clears 04/05/17 20:44 Pt can be anxious and pacing at times but is redirectable. Continue current care 04/06/17 18:30 Pt a little better today. Remains confused but no behaviors noted. Continue current care 04/07/17 20:58 No behaviors today. Continue current care 04/08/17 12:21 Some aggression and exit seeking last night. Will contact family and discuss starting medication to assist with agitation 04/09/17 20:59 No agitation today. Will attempt again to contact family
[2017-04-10] MEDS: LEVOTHYROXINE 25 MCG TABLET PO SCH (10:02)
[2017-04-10] MEDS: MEMANTINE 10 MG TABLET PO SCH ×2 (10:02→20:08)
[2017-04-10] MEDS: AMLODIPINE 2.5 MG TABLET PO SCH (10:03)
[2017-04-10] MEDS: AMLODIPINE 5 MG TABLET PO SCH (16:28)
[2017-04-10] MEDS: DONEPEZIL 5 MG TABLET PO SCH (20:08)
[2017-04-10] MEDS: ASPIRIN 81 MG CHEWABLE TABLET PO SCH (20:08)
--- NOTE | 2017-04-10 22:12 | Neuropsych Progress Note ---
[facility] Subjective Date: 04/10/17 - Sujective/Severity of Illness Medications: Amlodipine Besylate (Norvasc) 5 mg PO DAILY [facility] Last Admin: 04/10/17 16:28 Dose: 5 mg Aspirin (Asa) 81 mg PO [facility] Last Admin: 04/10/17 20:08 Dose: 81 mg Cephalexin HCl (Keflex) 500 mg PO QID [facility] Stop: 04/13/17 23:59 Last Admin: 04/10/17 20:08 Dose: 500 mg Donepezil HCl (Aricept) 5 mg PO [facility] Last Admin: 04/10/17 20:08 Dose: 5 mg Haloperidol (Haldol) 0.5 mg PO Q6H PRN PRN Reason: Extreme agitation Haloperidol Lactate (Haldol) 0.5 mg IM Q6H PRN PRN Reason: Extreme agitation Levothyroxine Sodium (Synthroid) 25 mcg PO ACB [facility] Last Admin: 04/10/17 10:02 Dose: 25 mcg Lorazepam (Ativan) 0.5 mg PO Q6H PRN PRN Reason: Extreme agitation Last Admin: 04/08/17 12:00 Dose: 0.5 mg Lorazepam (Ativan Inj) 0.5 mg IM Q6H PRN PRN Reason: Extreme agitation Last Admin: 04/07/17 19:52 Dose: 0.5 mg Magnesium Hydroxide (Mom) 30 ml PO DAILY PRN PRN Reason: Constipation Last Admin: 04/09/17 10:00 Dose: 30 ml Memantine (Namenda) 10 mg PO BID [facility] Last Admin: 04/10/17 20:08 Dose: 10 mg Subjective: Pt seen and chart examined.Nursing reports pt has done well today. Pleasant but confused. No behaviors noted. On face to face the pt is pleasant but confused. He is only oriented to self. He reports his mood is stable and he denies any pain. Tolerating meds Start Time: 17:15 Stop Time: 17:30 Mental Status Exam Vitals: Last Vital Signs Temp 98.6 F 04/10/17 20:13 Pulse 73 04/10/17 20:13 Resp 20 04/10/17 20:13 BP 115/69 04/10/17 20:13 Pulse Ox 97 04/10/17 20:13 Height: 1.83 m Weight: 81.4 kg - Mental Status Exam Muscle Strength/Tone: Normal Dressing: Casual Grooming: Fair Attitude: Cooperative Motor Activity: Normal Eye Contact: Fair Speech: Other (Short responses) Volume: Normal Rhythm: Appropriate Rhythm Orientation: Disoriented to time, Disoriented to place, Disoriented to situation , Oriented to person Mood: Euthymic (Mood labile per family, [place]) Rate of Thoughts: Delayed Thought Organization: Confused Associations: Illogical Abstract Reasoning: Impaired, concrete Computation: Poor Computation Thought Content: Other (No abnormal thought content elicited outside of MNCD) Perception/Psychotic: Perception Normal Language: Naming Impaired Fund of Knowledge: Poor fund of knowledge Memory: Poor-immediate, Poor-recent, Poor-remote Suicidal Ideation: Denies Homicidal Ideation: Denies Insight: Poor Judgement: Poor Impulse Control: Poor - Laboratory Result Diagrams: 04/09/17 06:11 04/09/17 06:11 Assessment and Plan (1) UTI (urinary tract infection) Qualifiers: Urinary tract infection type: acute cystitis Hematuria presence: with hematuria Qualified Code(s): N30.01 - Acute cystitis with hematuria Current visit: Yes Status: Acute (2) Major neurocognitive disorder Problem details: Severe, with behavioral disturbance - history of Alzheimer's disease Current visit: Yes Status: Acute Hospital Course Summary Disclaimer: The visit summary below is not to be considered part of the above Progress Note. Hospital Course: Impression Neurocognitive deficits with behavioral changes Hypernatremia-POA Hypothyroidism-TSH on admission 5.85. UTI versus asymptomatic bacteriuria-given his change in mental status, antibiotic treatment has been initiated 04/04/17-hospitalist consult Agree with admission to [facility] for psychiatric evaluation and treatment, and to provide safe environment for the patient. Encourage fluids given his hypernatremia. Recheck BMP in the a.m. Start low-dose Synthroid for his elevated TSH. Free T4 is still pending.Repeat TSH in 4 weeks. Continue cephalexin for presumed UTI. Culture is pending. Thank you for the consult. We will continue to follow patient medically throughout his hospital stay. 04/04/17 21:23 Pt continues to ahve some confusion and agitation at times. Will D/C Seroquel as son feels this may have made symptoms worse. Will see if symptoms improve as UTI clears 04/05/17 20:44 Pt can be anxious and pacing at times but is redirectable. Continue current care 04/06/17 18:30 Pt a little better today. Remains confused but no behaviors noted. Continue current care 04/07/17 20:58 No behaviors today. Continue current care 04/08/17 12:21 Some aggression and exit seeking last night. Will contact family and discuss starting medication to assist with agitation 04/09/17 20:59 No agitation today. Will attempt again to contact family 04/10/17 22:11 Pt improved. Continue current care
[2017-04-11] MEDS: LEVOTHYROXINE 25 MCG TABLET PO SCH (05:45)
--- NOTE | 2017-04-11 09:21 | Progress Note ---
Subjective: Patient was seen today while eating breakfast. He currently has no complaints. When asked if he has any pain or other symptoms, he states "well, I haven't really thought about it." Denies chest pain, shortness of breath, abdominal pain , nausea and vomiting. He is eating well. Nurses have no current concerns regarding patient. Objective Vital signs: Temperature 98.6 F 04/10/17 20:13 Pulse Rate 73 04/10/17 20:13 Respiratory Rate 20 04/10/17 20:13 Blood Pressure 115/69 04/10/17 20:13 Pulse Oximetry 97 04/10/17 20:13 Height/Weight/BMI: Height 1.83 m Weight 81.4 kg Body Mass Index 24.3 - Constitutional Present: no acute distress, well nourished, well developed, thin - Routine HEENT Exam Head: Present: normocephalic, atraumatic - Routine Respiratory Exam Present: CTA bilaterally. Absent: wheezes - Routine Cardiovascular Exam Present: RRR, S1, S2. Absent: murmur - Routine Abdominal Exam Present: soft, normoactive bowel sounds, non distended. Absent: tenderness - Routine Extremities Exam Present: no edema, normal capillary refill - Routine Skin Exam Present: dry, warm - Routine Neurological Exam Present: alert, normal speech. Absent: oriented X3 (oriented to self) - Routine Lymphatic Exam Lymphatic: Absent: adenopathy - Routine Psychiatric Exam Present: normal affect, cooperative Results - Labs CBC & Chem 7: 04/09/17 06:11 04/11/17 05:59 Assessment and Plan Assessment and Plan: Impression Neurocognitive deficits with behavioral changes Hyperkalemia - suspect falsely elevated d/t specimen hemolysis Hypernatremia-POA Hypothyroidism-TSH on admission 5.85 (levothyroxine started) UTI versus asymptomatic bacteriuria-given his change in mental status, antibiotic treatment has been initiated Plan Repeat BMP in the morning. Suspected elevated potassium today was related to hemolysis of specimen. Patient medically stable. No concerns at this time. The 7 days of treatment for his UTI will be completed 04/13/17. The stop date of cephalexin is currently on the order. Nurse's notes, psychiatric note, vital signs, and laboratory reviewed. Hospital Course Summary Disclaimer: The visit summary below is not to be considered part of the above Progress Note. Hospital Course: Impression Neurocognitive deficits with behavioral changes Hypernatremia-POA Hypothyroidism-TSH on admission 5.85. UTI versus asymptomatic bacteriuria-given his change in mental status, antibiotic treatment has been initiated 04/04/17-hospitalist consult Agree with admission to [facility] for psychiatric evaluation and treatment, and to provide safe environment for the patient. Encourage fluids given his hypernatremia. Recheck BMP in the a.m. Start low-dose Synthroid for his elevated TSH. Free T4 is still pending.Repeat TSH in 4 weeks. Continue cephalexin for presumed UTI. Culture is pending. Thank you for the consult. We will continue to follow patient medically throughout his hospital stay. 04/04/17 21:23 Pt continues to ahve some confusion and agitation at times. Will D/C Seroquel as son feels this may have made symptoms worse. Will see if symptoms improve as UTI clears 04/05/17 20:44 Pt can be anxious and pacing at times but is redirectable. Continue current care 04/06/17 18:30 Pt a little better today. Remains confused but no behaviors noted. Continue current care 04/07/17 20:58 No behaviors today. Continue current care 04/08/17 12:21 Some aggression and exit seeking last night. Will contact family and discuss starting medication to assist with agitation 04/09/17 20:59 No agitation today. Will attempt again to contact family 04/10/17 22:11 Pt improved. Continue current care 04/11/17 09:58 Repeat BMP in the morning. Suspected elevated potassium today was related to hemolysis of specimen.
[2017-04-11] MEDS: MEMANTINE 10 MG TABLET PO SCH ×2 (09:48→20:02)
[2017-04-11] MEDS: AMLODIPINE 5 MG TABLET PO SCH (09:48)
[2017-04-11 16:04] VITALS: O2SAT 97
--- NOTE | 2017-04-11 18:09 | Neuropsych Progress Note ---
[facility] Subjective Date: 04/11/17 - Sujective/Severity of Illness Medications: Amlodipine Besylate (Norvasc) 5 mg PO DAILY [facility] Last Admin: 04/11/17 09:48 Dose: 5 mg Aspirin (Asa) 81 mg PO [facility] Last Admin: 04/10/17 20:08 Dose: 81 mg Cephalexin HCl (Keflex) 500 mg PO QID [facility] Stop: 04/13/17 23:59 Last Admin: 04/11/17 16:44 Dose: 500 mg Donepezil HCl (Aricept) 5 mg PO [facility] Last Admin: 04/10/17 20:08 Dose: 5 mg Haloperidol (Haldol) 0.5 mg PO Q6H PRN PRN Reason: Extreme agitation Haloperidol Lactate (Haldol) 0.5 mg IM Q6H PRN PRN Reason: Extreme agitation Levothyroxine Sodium (Synthroid) 25 mcg PO ACB [facility] Last Admin: 04/11/17 05:45 Dose: 25 mcg Lorazepam (Ativan) 0.5 mg PO Q6H PRN PRN Reason: Extreme agitation Last Admin: 04/08/17 12:00 Dose: 0.5 mg Lorazepam (Ativan Inj) 0.5 mg IM Q6H PRN PRN Reason: Extreme agitation Last Admin: 04/07/17 19:52 Dose: 0.5 mg Magnesium Hydroxide (Mom) 30 ml PO DAILY PRN PRN Reason: Constipation Last Admin: 04/09/17 10:00 Dose: 30 ml Memantine (Namenda) 10 mg PO BID [facility] Last Admin: 04/11/17 09:48 Dose: 10 mg Subjective: Pt seen and chart examined. Nursing reports pt is doing well. Sleeping well and has a good appetite. No behaviors noted. On face to face the pt is pleasant but confused. He is only oriented to self. Denies any pain. Tolerating meds. Voices no concerns at this time Start Time: 17:30 Stop Time: 17:45 Mental Status Exam Vitals: Last Vital Signs Temp 98.3 F 04/11/17 16:00 Pulse 58 L 04/11/17 16:00 Resp 16 04/11/17 16:00 BP 153/75 H 04/11/17 16:00 Pulse Ox 97 04/11/17 16:00 Height: 1.83 m Weight: 81.4 kg - Mental Status Exam Muscle Strength/Tone: Normal Dressing: Casual Grooming: Fair Attitude: Cooperative Motor Activity: Normal Eye Contact: Fair Speech: Other (Short responses) Volume: Normal Rhythm: Appropriate Rhythm Orientation: Disoriented to time, Disoriented to place, Disoriented to situation , Oriented to person Mood: Euthymic (Mood labile per family, [place]) Rate of Thoughts: Delayed Thought Organization: Confused Associations: Illogical Abstract Reasoning: Impaired, concrete Computation: Poor Computation Thought Content: Other (No abnormal thought content elicited outside of MNCD) Perception/Psychotic: Perception Normal Language: Naming Impaired Fund of Knowledge: Poor fund of knowledge Memory: Poor-immediate, Poor-recent, Poor-remote Suicidal Ideation: Denies Homicidal Ideation: Denies Insight: Poor Judgement: Poor Impulse Control: Poor - Laboratory Result Diagrams: 04/09/17 06:11 04/11/17 05:59 Laboratory Results - last 24 hr 04/11/17 05:59 Turbidity < 20 Sodium 143 Potassium 5.1 H D Chloride 109 H Carbon Dioxide 23 Anion Gap 11 BUN 17.0 Creatinine 1.0 GFR Calculation 71 BUN/Creatinine Ratio 17 Glucose 82 Calculated Osmolality 276 Calcium 9.5 Icterus Index < 2 Specimen Hemolysis 164 H Assessment and Plan (1) UTI (urinary tract infection) Qualifiers: Urinary tract infection type: acute cystitis Hematuria presence: with hematuria Qualified Code(s): N30.01 - Acute cystitis with hematuria Current visit: Yes Status: Acute (2) Major neurocognitive disorder Problem details: Severe, with behavioral disturbance - history of Alzheimer's disease Current visit: Yes Status: Acute Hospital Course Summary Disclaimer: The visit summary below is not to be considered part of the above Progress Note. Hospital Course: Impression Neurocognitive deficits with behavioral changes Hypernatremia-POA Hypothyroidism-TSH on admission 5.85. UTI versus asymptomatic bacteriuria-given his change in mental status, antibiotic treatment has been initiated 04/04/17-hospitalist consult Agree with admission to [facility] for psychiatric evaluation and treatment, and to provide safe environment for the patient. Encourage fluids given his hypernatremia. Recheck BMP in the a.m. Start low-dose Synthroid for his elevated TSH. Free T4 is still pending.Repeat TSH in 4 weeks. Continue cephalexin for presumed UTI. Culture is pending. Thank you for the consult. We will continue to follow patient medically throughout his hospital stay. 04/04/17 21:23 Pt continues to ahve some confusion and agitation at times. Will D/C Seroquel as son feels this may have made symptoms worse. Will see if symptoms improve as UTI clears 04/05/17 20:44 Pt can be anxious and pacing at times but is redirectable. Continue current care 04/06/17 18:30 Pt a little better today. Remains confused but no behaviors noted. Continue current care 04/07/17 20:58 No behaviors today. Continue current care 04/08/17 12:21 Some aggression and exit seeking last night. Will contact family and discuss starting medication to assist with agitation 04/09/17 20:59 No agitation today. Will attempt again to contact family 04/10/17 22:11 Pt improved. Continue current care 04/11/17 09:58 Repeat BMP in the morning. Suspected elevated potassium today was related to hemolysis of specimen. 04/11/17 18:08 PT stable. Plan D/C tomorrow
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
[2017-04-11] MEDS: ASPIRIN 81 MG CHEWABLE TABLET PO SCH (20:02)
[2017-04-11] MEDS: DONEPEZIL 5 MG TABLET PO SCH (20:02)
[2017-04-12] MEDS: AMLODIPINE 5 MG TABLET PO SCH (09:35)
[2017-04-12] MEDS: LEVOTHYROXINE 25 MCG TABLET PO SCH (09:35)
[2017-04-12] MEDS: MEMANTINE 10 MG TABLET PO SCH (09:35)
[2017-04-12 10:06] VITALS: BP 143/84; PULSE 74; RESP 18; TEMP 97.6
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
== END 2017-04-12 11:00 | DRG 57 ==
LOC: ED 12:51 → GEN 16:37
PROVIDERS: ADMIT Psychiatry & Neurology Psychiatry; ATTEND Psychiatry & Neurology Psychiatry